=== PATIENT | female | born 1985 | race Caucasian/White ===

== ENCOUNTER 2021-12-05 22:07 | Emergency (ER) | payer OTHER ==
[~2021-12-05] VITALS: Ht 165.1 cm; Wt 96.2 kg
[2021-12-06 00:21] VITALS: BP 160/78
[2021-12-06] MEDS ORDERED: SILV20CR13 TP (00:48)
[2021-12-06] MEDS ORDERED: SILVER SULFADIAZINE CREAM 25 GM TUBE ONE (00:52)
[2021-12-06] MEDS ORDERED: SILVER SULFADIAZINE CREAM 25 GM TUBE TP ONE (01:00)
--- NOTE | 2021-12-06 01:05 | NUR ---
Patient discharged to home in stable condition. Written and verbal after care instructions given. Patient verbalizes understanding of instruction. RX given
== END 2021-12-06 01:06 | disposition home or self-care (01) ==
LOC: ER 22:12
DX: T22.111A Burn of first degree of right forearm, initial encounter (principal); Z60.2 Problems related to living alone; X19.XXXA Contact with other heat and hot substances, initial encounter; Y93.89 Activity, other specified; Y92.89 Other specified places as the place of occurrence of the external cause; Y99.0 Civilian activity done for income or pay